=== PATIENT | female | born 1990 | race Hispanic/Latino ===

== ENCOUNTER 2023-09-30 18:55 | Emergency (ER) | payer SELFPAY ==
[2023-09-30 19:00] VITALS: BP 159/89; BMI 42.5
[2023-09-30] MEDS: MOTRIN 600 MG PO (21:25)
[2023-09-30] MEDS: VALIUM 5 MG PO (21:26)
--- NOTE | 2023-09-30 21:27 | ED.MUSCINJ ---
HPI-Injury
General
Chief Complaint: Musculo-Skeletal Complaint
Source: patient and family (son)
Exam Limitations: none
Time Seen by Provider: 09/30/23 21:10
Nursing documentation reviewed up to this point in time: agreed with
Travel History
Have you had any contact with someone who has COVID-19?: No
Do you have any symptoms of coronavirus? Fever > 100 degrees, chills, cough, shortness of breath, sore throat, loss of taste or smell, muscle aches, or headache?: No
History of Present Illness-Injury
Initial Injury comments:
32 yo female with no PMHX states she awakened this a.m. with stiff neck. Pain in anterior to right side of neck. Denies pain or difficulty speaking or swallowing, denies fever. Took ASA, used ICY Hot with little relief. no recollection of overuse
or injury
Past History
Past History
ED Past Medical History: None
ED Past Surgical History: None
Social History
Tobacco: Non-smoker
Alcohol: None
Living: with family
Review of Systems
Review of Systems
Allergies reviewed?: Yes
All Other Systems: ROS reviewed and negative except as documented in HPI and ROS
Constitutional: Denies fever
EENT: Denies sore throat
Respiratory: Denies trouble breathing
Cardiac: Denies chest pain
ABD/GI: Denies abdominal pain or nausea
Musculoskeletal: Reports neck pain; Denies back pain
Skin: Reports no symptoms
Neurological: Denies headache, weakness or numbness
Phy Exam
Physical Exam
Physical Exam:
GENERAL: No acute distress. A&Ox3.
CONSTITUTIONAL: Afebrile.
EYES: PERRL, conjunctivae normal
Neck: No palpable masses.
ENMT: moist mucus membranes, Pharynx nl, speaking and swallowing well, drinking water
RESPIRATORY: Regular respirations, nonlabored, lungs clear.
CARDIOVASCULAR: Regular rate and rhythm, no murmurs, no rubs.
GI: Soft, nontender, normal BS
MUSCULOSKELETAL: No spinal bony tenderness, moderately limited ROM of neck, pain aggravated when turning head to affected side (right) Tender to palpation right lateral neck ST, Moves with ease. Well perfused.
SKIN: Warm, dry, pink
PSYCH: Normal mood and affect. Well kept, interactive and appropriate
NEUROLOGIC: Awake, alert and oriented. Hand grasps equal 5/5. No focal neurological deficits
Injury Course
Orders/Labs/Results
Orders:
Orders
09/30/23 21:11
Diazepam [Valium] 5 mg PO NOW STA
09/30/23 21:16
Ibuprofen [Motrin] 600 mg PO NOW STA
CR Cervical Spine 2 or 3 Vw Urgent
Comment:
Reason For Exam: woke with stiff neck, anterior and R side
MDM/Problems Addressed
Differential Diagnosis Includes:
Torticollis, retropharyngeal abscess
MDM/Problems Addressed:
32 yo female with no PMHX states she awakened this a.m. with stiff neck. Pain in anterior to right side of neck. Denies pain or difficulty speaking or swallowing, denies fever. Took ASA, used ICY Hot with little relief. no recollection of overuse
or injury
09/30/2023 2302 PM
After p.o. Valium and ibuprofen, patient is feeling better, she has much better range of motion of her neck.
X-ray of cervical spine initially read by this examiner: No fracture, no ST abnormality, straightening of lordodic curve consistent with muscle spasm.
Rx for Flexeril sent to her pharmacy
*Critical Care Note
Total Time (30-74mins, 75-104mins- exclusive of procedures): Not Applicable
ED Attending Note
-
Portions of this chart may have been created with voice recognition software.� Occasional wrong word or��sound alike� substitutions may have occurred due to the inherent limitations of voice recognition software.
Discharge Plan
Departure
Patient Disposition: Home (Routine Discharge)
Date of Disposition: 09/30/23
Time of Disposition: 23:04
Patient with high blood pressure during this ER visit?: No
Condition: Good
Discharge Problem:
Acute torticollis
Instructions: Torticollis
Prescriptions:
New
cyclobenzaprine 10 mg tablet
10 mg PO BID PRN (Reason: neck spasms/tightness) Qty: 14 0RF
Referrals:
UNKNOWN - PT DOES,NOT KNOW [Family Provider] -
Activity Restrictions/Additional Instructions:
As we discussed, you have muscle spasm of the neck muscles.
Ibuprofen 600 mg (with food) every 6 hours as needed for pain
Warm compress/heating pad to relax the muscles.
I sent a prescription to your pharmacy for Cyclobenzaprine (Flexeril) muscle relaxant to your pharmacy.
Do not drive or operate any machinery within 8 hours of taking the Flexeril as it can make you sleepy and slow the reflexes. See your doctor in 5 days if not much improved by then. Move your neck more and more as comfort permits, if you do not
start moving it would just get more stiff.
Interventions
Interventions:
*Risk Screen - Suicide Last Done: 09/30/23 19:00
*General Assessment Last Done: 09/30/23 19:51
*Neglect/Abuse Screening Last Done: 09/30/23 19:00
*ED COVID-19 Vaccine History Last Done: 09/30/23 19:00
*Nursing Disposition Last Done: 09/30/23 23:22
ED-Musculoskeletal Assessment Last Done: 09/30/23 19:51
Discharge Date and Time
Discharge Date/Time: 09/30/23 23:23
Print Language: BELGIAN
[2023-09-30 22:57] VITALS: BP 117/67
[2023-09-30 23:22] VITALS: BP 117/67
== END 2023-09-30 23:23 | disposition home or self-care (01) ==
LOC: EMR 18:55
PROVIDERS: EMERGENCY PHYSICIAN Emergency Medicine
DX: M43.6 Torticollis (principal)
CPT/HCPCS: 99283; 72040

== ENCOUNTER → 2024-01-13 11:52 | Outpatient (REF) | payer OTHER, SELFPAY ==
[2024-01-13 13:43] LABS: ALT (SGPT) 16 U/L (0-35); AST (SGOT) 19 U/L (14-36); Albumin 4.3 g/dl (3.5-5.0); Alkaline Phosphatase 69 U/L (38-126); Blood Urea Nitrogen 8 mg/dl (7-17); Calcium 9.4 mg/dl (8.4-10.2); Carbon Dioxide 27 mmol/L (22-30); Chloride 105 mmol/L (98-107); Glucose 90 mg/dl (70-99); Potassium 4.7 mmol/L (3.5-5.1); Sodium 140 mmol/L (135-145); Total Bilirubin 0.4 mg/dl (0.2-1.3); Total Protein 7.1 g/dl (6.3-8.2); eGFR > 60.00
[2024-01-13 13:46] LABS: % Basophils 0.6 % (0-2); % Eosinophils 1.4 % (0-6); % Immature Granulocytes 0.3 % (0-0.5); % Lymphocytes 32.6 % (20.5-51.1); % Neutrophils 57.1 % (42.2-75.2); Absolute Basophils 0.1 10^3/uL (0-0.2); Absolute Eosinophils 0.1 10^3/uL (0-0.7); Absolute Lymphocytes 2.5 10^3/uL (1.2-3.4); Absolute Monocytes 0.6 10^3/uL (0.1-0.6); Absolute Neutrophils 4.4 10^3/uL (1.4-6.5); Hematocrit 39.4 % (37.0-47.0); Hemoglobin 12.7 g/dL (12.0-16.0); Mean Corp Hgb Conc. 32.2 g/dL (33.0-37.0); Mean Corpuscular Hgb 26.5 pg (27.0-31.0); Mean Corpuscular Volume 82.1 fL (81.0-99.0); Mean Platelet Volume 11.4 fL (7.4-10.4); Nucleated Red Blood Cells % 0 %; Platelet Count 254 10^3/uL (130-400); Red Cell Dist. Width 14.2 % (11.5-14.5); White Blood Cell Count 7.8 10^3/uL (4.8-10.8)
[2024-01-13 14:11] LABS: TSH Reflex To Free T4 0.65 uIU/ml (0.47-4.68)
== END ==
LOC: CLINIC 11:52
PROVIDERS: ATTENDING PHYSICIAN Nurse Practitioner Acute Care
DX: R22.42 Localized swelling, mass and lump, left lower limb (principal); R00.1 Bradycardia, unspecified
CPT/HCPCS: 36415; 73600; 80053; 84443; 85025; 93005

== ENCOUNTER → 2025-01-10 07:21 | Outpatient (REF) | payer OTHER, SELFPAY ==
[2025-01-10 08:11] LABS: Hematocrit 39.6 % (37.0-47.0); Hemoglobin 12.5 g/dL (12.0-16.0); Mean Corp Hgb Conc. 31.6 g/dL (33.0-37.0); Mean Corpuscular Volume 82.8 fL (81.0-99.0); Platelet Count 249 10^3/uL (130-400); Red Cell Dist. Width 14.4 % (11.5-14.5)
[2025-01-10 08:42] LABS: ALT (SGPT) < 10 U/L (0-35); AST (SGOT) 14 U/L (14-36); Albumin 4.1 g/dl (3.5-5.0); Alkaline Phosphatase 59 U/L (38-126); Blood Urea Nitrogen 9 mg/dl (7-17); Calcium 9.0 mg/dl (8.4-10.2); Carbon Dioxide 26 mmol/L (22-30); Chloride 109 mmol/L (98-107); Glucose 103 mg/dl (70-99); Potassium 4.5 mmol/L (3.5-5.1); Sodium 139 mmol/L (135-145); Total Protein 6.9 g/dl (6.3-8.2); eGFR > 60.00
[2025-01-10 08:54] LABS: Vitamin D, 25-OH*** 34.4 ng/mL (30-80)
[2025-01-10 10:16] LABS: Glycohemoglobin (HgbA1c) 5.6 % (4.0-5.6)
== END ==
LOC: CLINIC 07:21
PROVIDERS: ATTENDING PHYSICIAN Nurse Practitioner Adult Health
DX: Z00.00 Encounter for general adult medical examination without abnormal findings (principal); E55.9 Vitamin D deficiency, unspecified
CPT/HCPCS: 36415; 80053; 82306; 83036; 84443; 85027